=== PATIENT | female | born 1970 | race Two or more races ===

== ENCOUNTER 2021-10-18 08:06 | Day surgery (SDC) | payer OTHER ==
[~2021-10-18 08:06] MED LIST: CRESTOR5 MG PO; SYNTHROID175 MCG PO
== END 2021-10-18 15:45 | disposition home or self-care (01) ==
LOC: CIR.AMB 08:06
PROVIDERS: ATTEND Obstetrics & Gynecology
DX: N84.0 Polyp of corpus uteri (principal); Z88.8 Allergy status to other drugs, medicaments and biological substances; I34.0 Nonrheumatic mitral (valve) insufficiency; J45.909 Unspecified asthma, uncomplicated; E78.5 Hyperlipidemia, unspecified; E03.9 Hypothyroidism, unspecified; Z20.822 Contact with and (suspected) exposure to COVID-19

== ENCOUNTER 2024-07-26 09:55 | Outpatient (CLI) | payer OTHER | END 2024-07-26 09:58 | disposition home or self-care (01) | LOC: SONOGRAMA 09:55 | PROVIDERS: ATTEND Pathology Anatomic Pathology & Clinical Pathology | DX: E04.1 Nontoxic single thyroid nodule (principal); D44.0 Neoplasm of uncertain behavior of thyroid gland ==